=== PATIENT | female | born 1965 | race Caucasian/White ===

== ENCOUNTER 2017-07-02 21:34 | Emergency (ER) | payer BC ==
[~2017-07-02] VITALS: Ht 167.6 cm; Wt 117.9 kg
[2017-07-02 21:40] VITALS: BP 158/92
--- NOTE | 2017-07-02 21:58 | ED Fall/Injury ---
General Chief Complaint: Upper Extremity Stated Complaint: FELL,INJ R ARM Source: patient Exam Limitations: no limitations History of Present Illness Date Seen by Provider: Jul 02, 2017 Time Seen by Provider: 21:48 Initial Comments Patient presents to ER by private conveyance with her significant other and a chief complaint that they were at [place] earlier today about 9:00 in the morning she fell on outstretched hands the ulnar side of her right forearm. She' s had some pain and swelling and now little bit of tingling in her fingers. She has good sensation still having quite a bit of swelling all the way up to her elbow. She hurts to flex her forearm or to pronate it. She does not have a history of injury to this forearm. She has taken some Excedrin and it was 1:00 this afternoon. Allergies and Home Medications Allergies Coded Allergies: No Known Drug Allergies (Unverified , 09/09/09) Patient Home Medication List Home Medication List Reviewed: Yes Constitutional: No chills, No diaphoresis Ears, Nose, Mouth, Throat: denies ear pain, denies ear discharge Respiratory: No cough, No short of breath Cardiovascular: No chest pain, No palpitations Gastrointestinal: No constipation, No nausea Genitourinary: No discharge, No dysuria Musculoskeletal: see HPI, No back pain, No neck pain Past Ggcrwav-Hxlymo-Bbbcpv Hx Patient Social History Alcohol Use: Denies Use Recreational Drug Use: No Smoking Status: Never a Smoker 2nd Hand Smoke Exposure: No Recent Hopitalizations: No Seasonal Allergies Seasonal Allergies: No Surgeries History of Surgeries: Yes Surgeries: Appendectomy, Gallbladder, Joint Replacement Respiratory History of Respiratory Disorde: No Cardiovascular History of Cardiac Disorders: No Neurological History of Neurological Disord: No Gastrointestinal History of Gastrointestinal Di: No Musculoskeletal History of Musculoskeletal Dis: Yes (OSTEOARTHRITIS) Endocrine History of Endocrine Disorders: No Blood Transfusions History of Blood Disorders: No Physical Exam Vital Signs Vital Signs - First Documented 07/02/17 21:40 Temp 97.1 Pulse 84 Resp 18 B/P (MAP) 158/92 (114) Pulse Ox 97 O2 Delivery Room Air Capillary Refill : General Appearance: WD/WN, no apparent distress HEENT: PERRL/EOMI, pharynx normal Neck: non-tender, supple, normal inspection Cardiovascular: normal peripheral pulses, regular rate, rhythm Respiratory: chest non-tender, lungs clear, no respiratory distress, no accessory muscle use Peripheral Pulses: 2+ Radial Pulses (R), 2+ Radial Pulses (L) Gastrointestinal: normal bowel sounds, non tender, soft Extremities: normal capillary refill, swelling, other (mild swelling on the proximal ulnar region. Difficulty fully extending or flexing the right elbow. Hand and wrist are nontender with full range of motion. There is some swelling and bruising on the proximal ulna is tender to touch. Shoulder has normal range of motion and nontender. Cervical neck nontender) Neurologic/Psychiatric: no motor/sensory deficits, alert, oriented x 3 Skin: warm/dry, ecchymosis Progress/Results/Core Measures Results/Orders My Orders Orders - ANGELA MANSFIELD Ketorolac Injection (Toradol Injection) (07/02/17 22:00) Forearm, Right, 2 Views (07/02/17 21:51) Elbow, Right, 3 Views (07/02/17 21:51) Medications Given in ED Current Medications Medications Dose Ordered Sig/Santa Route Start Time Stop Time Status Last Admin Dose Admin Ketorolac Tromethamine 30 mg ONCE ONCE IM 07/02/17 22:00 07/02/17 22:01 DC 07/02/17 22:15 30 MG Vital Signs/I&O Vital Sign - Last 12Hours 07/02/17 21:40 Temp 97.1 Pulse 84 Resp 18 B/P (MAP) 158/92 (114) Pulse Ox 97 O2 Delivery Room Air Diagnostic Imaging Diagonstic Imaging: Xray Plain Films/CT/US/NM/MRI: forearm, elbow (right) Comments Closed nondisplaced proximal radial head fracture through the articular surface. Reviewed: Reviewed by Me Departure Impression Impression: Primary Impression: Fall Qualified Codes: W19.XXXA - Unspecified fall, initial encounter Additional Impression: Radial head fracture, closed Qualified Codes: S52.124A - Nondisplaced fracture of head of right radius, initial encounter for closed fracture Disposition: HOME, SELF-CARE Condition: Improved Departure-Patient Inst. Decision time for Depature: 22:43 Referrals: RENNY OLSEN MD (PCP/Family) Primary Care Physician Patient Instructions: How to Use a Shoulder Sling, Radius Fracture (DC) Add. Discharge Instructions: Use an ice pack on for 20 minutes over the right elbow every 4 hours for the first 3 days. After that you can use heating pads as necessary. You can use Tylenol 1000 mg every 6 hours for pain as well as ibuprofen 800 mg every 8 hours. If this is not controlling her pain along with sling he can also use the hydrocodone one tablet every 6 hours. Tuesday call your doctor or call [facility] at [phone] for an appointment within the next 1-[address] Smith would be happy to see you this week. Return to care if you begin to have numbness, discoloration, fever, nausea vomiting or loss of sensation or movement in the hand/fingers. All discharge instructions reviewed with patient and/or family. Voiced understanding. Scripts Hydrocodone Bit/Acetaminophen (Hydrocodone/Acetaminophen 5/325mg Tablet) 1 Tab Tab 1-2 EACH PO Q6H Y for BREAKTHROUGH PAIN, #12 TAB 0 Refills Prov: ANGELA MANSFIELD 07/02/17 Work/School Note: Work Release Form Date Seen in the Emergency Department: Jul 02, 2017 Return to Work: Jul 04, 2017 Restrictions: Need Release from Doctor Other Restrictions Listed Below: no lifting over 1# right arm. Copy Copies To 1: RENNY OLSEN MD Copies To 2: ASPEN SMITH TITUS J Jul 02, 2017 21:57
[2017-07-02] MEDS ORDERED: KETOROLAC 30 MG/ML VIAL IM ONE (22:00)
[2017-07-02] MEDS ORDERED: ACHD5005 PO (22:46)
[2017-07-02] MEDS ORDERED: RX-HYDROCODONE/APAP 5/325 MG #4 TAB PK PO ONE (22:48)
[2017-07-02] MEDS ORDERED: RX-HYDROCODONE/APAP 5/325 MG #4 TAB PK PO PRN (23:00)
--- NOTE | 2017-07-03 08:56 | Diagnostic Imaging Report ---
EXAM: ELBOW, RIGHT, 3 VIEWS INDICATION: Right elbow pain. Fall. COMPARISON: None. FINDINGS: Mildly depressed intra-articular fracture of the right radial head. Normal alignment. No other fractures. Right elbow joint effusion. No radiopaque foreign bodies. IMPRESSION: Mildly depressed intra-articular right radial head fracture. Dictated by: Dictated on workstation # [id number]
--- NOTE | 2017-07-03 08:57 | Diagnostic Imaging Report ---
INDICATION: Fall, pain COMPARISON: Radiographs of the elbow from same day. TECHNIQUE: 2 radiographs of the right forearm dated 07/02/2017. FINDINGS: Acute minimally depressed fracture involving the articular surface of the radial head is identified. No additional acute fracture or dislocation. No destructive osseous process. IMPRESSION: Acute minimally depressed radial head fracture with associated intra-articular extension. Report was called to [facility] ER by felicita at 9:00 am. Dictated by: Dictated on workstation # [id number]
== END 2017-07-02 22:59 | disposition home or self-care (01) ==
LOC: EDUNIT# 21:34 → ER 21:37
DX: S52.124A Nondisplaced fracture of head of right radius, initial encounter for closed fracture (principal); Z90.49 Acquired absence of other specified parts of digestive tract; W18.30XA Fall on same level, unspecified, initial encounter
CPT/HCPCS: 73080; 73090; 99282

== ENCOUNTER → 2021-05-25 | Outpatient (RCR) | payer BC ==
[~2021-05-25] MED LIST: ACHD5005 PO
== END | disposition home or self-care (01) ==
PROVIDERS: ATTEND Nurse Practitioner
DX: Z47.1 Aftercare following joint replacement surgery (principal); Z96.652 Presence of left artificial knee joint

== ENCOUNTER 2021-06-15 15:50 | Outpatient (RCR) | payer BC | END 2021-06-18 14:51 | disposition home or self-care (01) | PROVIDERS: ATTEND Nurse Practitioner | DX: Z47.1 Aftercare following joint replacement surgery (principal); Z96.652 Presence of left artificial knee joint ==